=== PATIENT | male | born 2000 | race Caucasian/White ===

== ENCOUNTER 2023-02-01 21:52 | Emergency (ER) | payer OTHER, SELFPAY ==
[2023-02-01 21:54] VITALS: BP 143/83; PULSE 85; RESP 18; TEMP 36.9; O2SAT 100
[2023-02-01 22:07] VITALS: BP 129/83; PULSE 81; RESP 15; TEMP 37.1; O2SAT 100
--- NOTE | 2023-02-01 23:12 | ED.SKABFB ---
HPI - Skin/Abscess/Foreign Bdy General Chief complaint: Skin/Abscess/Foreign Body Stated complaint: Rash under armpit Time Seen by Provider: 02/01/23 22:33 Source: patient Mode of arrival: ambulatory Limitations: no limitations History of Present Illness HPI narrative: this is a 22-year-old male that presents to the emergency department for a rash present to his left axilla over the last 4 days. Reports he changed to a new deodorant and thought maybe it was a reaction to this. Although it is only on 1 of his armpits. Reports the area is painful and itchy. It has continued to spread which prompted him to be seen. Denies fevers. Related Data Allergies Allergy/AdvReac Type Severity Reaction Status Date / Time No Known Allergies Allergy Verified 02/01/23 22:10 Review of Systems Review of Systems: CONSTITUTIONAL: Denies fever SKIN: Reports rash and itching. All systems reviewed & are unremarkable except as noted in HPI and below PMFSH Past Medical History Medical History (Updated 02/01/23 @ 23:36 by Nimo Thibodeaux PA-C) No active medical problems Social History Social History (Updated 02/01/23 @ 23:36 by Nimo Thibodeaux PA-C) Substance use: never Exam Narrative: GENERAL: Well-appearing, well-nourished, and in no acute distress. HEAD: Normocephalic, atraumatic. EYES: EOMI. CHEST: No respiratory distress. HEART: Regular rate EXTREMITIES: Normal range of motion. No edema. Left axilla with skin sloughing and red, papular rash SKIN: Warm, dry, no rash. NEURO: No focal deficits. Alert and oriented x3. PSYCH: Normal mood and affect Course Course Emergency Course: Patient and family are in agreement with plan of care Vital Signs Vital signs: Vital Signs Temperature 98.5 F 02/01/23 21:54 Pulse Rate 85 02/01/23 21:54 Respiratory Rate 18 02/01/23 21:54 Blood Pressure 143/83 H 02/01/23 21:54 Pulse Oximetry 100 02/01/23 21:54 Oxygen Delivery Room Air 02/01/23 21:54 Temperature 98.1 F 02/01/23 23:29 Pulse Rate 78 02/01/23 23:29 Respiratory Rate 15 02/01/23 23:29 Blood Pressure 132/84 02/01/23 23:29 Pulse Oximetry 100 02/01/23 23:29 Oxygen Delivery Room Air 02/01/23 21:54 MDM - Skin/Abscess/Foreign Bdy MDM Narrative Medical decision making narrative: Patient presents to the emergency department for a rash present on his left axilla over the last 4 days. He is afebrile and nontoxic appearing. The rash does appear consistent with a bacterial infection. Patient instructed to keep the area clean and dry. Will be started on topical antibiotic as well as oral antibiotics. He will be given follow-up with Dermatology. He was given warnings to return to the ER I did send the wound for culture Differential Diagnosis Differential diagnosis: Likely urticaria, herpes zoster, cellulitis, eczema, insect bites, impetigo and contact dermatitis Critical Care Time Critical Care Time Critical Care Time: No Discharge Plan Discharge Clinical Impression: Rash and nonspecific skin eruption Patient Disposition: Home, Self-Care Condition: Stable Instructions: Antibiotic Form, Acute Rash (ED) Additional Instructions: Return if symptoms worsen or concerns: any increase in redness, swelling, pain or fever over 101 Take antibiotics as directed. Clean wound with mild soapy water. Apply antibiotic ointment and take oral antibiotics as prescribed Follow up with [facility]. If you do not hear from them by tomorrow afternoon give them a call Prescriptions: New amoxicillin-pot clavulanate 875-125 mg tablet 1 tablet PO Q12H 7 Days Qty: 14 0RF doxycycline hyclate 100 mg tablet 100 mg PO BID 7 Days Qty: 14 0RF mupirocin 2 % ointment 1 applic topical BID 7 Days Qty: 22 0RF Follow-up/Referrals: PHYSICIAN NOT ON STAFF,NONSTAFF [Primary Care Provider] -
[2023-02-01] MEDS: DOXYCYCLINE HYCLATE 100 MG TABLET PO (23:24)
[2023-02-01] MEDS: AMOXICILLIN/CLAVULANATE K 875-125 MG TAB 1 TABLET PO (23:25)
[2023-02-01 23:29] VITALS: BP 132/84; PULSE 78; RESP 15; TEMP 36.7; O2SAT 100
== END 2023-02-01 23:30 | disposition home or self-care (01) ==
PROVIDERS: Emergency Provider Physician Assistant
DX: R21 Rash and other nonspecific skin eruption (principal)
CPT/HCPCS: 87070; 87147; 87186; 87205; 99283; A9270